=== PATIENT | male | born 1975 | race African-American/Black ===

== ENCOUNTER 2017-01-30 18:30 | Emergency (ER) | payer MEDICAID, OTHER ==
[~2017-01-30] VITALS: Ht 180.3 cm; Wt 70.0 kg
[~2017-01-30 18:30] MED LIST: KEPP500 PO
[2017-01-30] MEDS ORDERED: PHEN100C12 (19:05)
[2017-01-30 23:10] VITALS: BP 140/84
== END 2017-01-30 23:24 | disposition home or self-care (01) ==
LOC: ER 18:31
DX: B35.3 Tinea pedis (principal); F17.200 Nicotine dependence, unspecified, uncomplicated; F12.10 Cannabis abuse, uncomplicated; Z79.899 Other long term (current) drug therapy
CPT/HCPCS: 99282

== ENCOUNTER 2017-05-13 20:11 | Emergency (ER) | payer SELFPAY ==
[~2017-05-13] VITALS: Ht 180.3 cm; Wt 66.4 kg
[~2017-05-13 20:11] MED LIST changes: +PHEN100C12
[2017-05-13] MEDS ORDERED: KETOROLAC 30MG/ML VIAL IM NR (22:26)
[2017-05-13 23:17] VITALS: BP 132/63
[2017-05-13 23:19] LABS: BASOPHILS % 1.1 % (0.0-2.0); EOSINOPHILS % 4.9 % (0.0-5.0); HEMATOCRIT. 40.3 % (42.0-52.0); LYMPHOCYTES % 25.8 % (20.0-50.0); MEAN CORPUSCULAR HEMOGLOBIN 31.1 pg (28.0-32.0); MEAN CORPUSCULAR VOLUME 89.5 fL (80.0-94.0); MEAN PLATELET VOLUME 10.4 fl (7.4-10.4); MONOCYTES % 6.3 % (2.0-8.0); NEUTROPHILS % 61.9 % (40.0-76.0); PLATELET 176 x1000/uL (130-400); RED CELL DISTRIBUTION WIDTH 14.5 % (11.6-14.6)
[2017-05-13 23:31] LABS: PROTHROMBIN TIME 10.8 sec (9.4-11.6)
[2017-05-13 23:34] LABS: CARBON DIOXIDE 28 mEq/L (21-32); CHLORIDE 106 mEq/L (98-107); ETHANOL BLOOD < 10 mg/dL
[2017-05-13 23:57] LABS: CLARITY URINE CLEAR (CLEAR); COLOR URINE YELLOW (YELLOW); GLUCOSE URINE NEGATIVE (NEGATIVE); KETONES URINE NEGATIVE (NEGATIVE); LEUKOCYTE ESTERASE URINE NEGATIVE (NEGATIVE); NITRITE URINE NEGATIVE (NEGATIVE); OCCULT BLOOD URINE NEGATIVE (NEGATIVE); PROTEIN URINE NEGATIVE (NEGATIVE); SPECIFIC GRAVITY URINE 1.017 (1.005-1.030)
[2017-05-14 00:13] LABS: *AMPHETAMINES SCREEN URINE NEGATIVE (NEGATIVE); *BARBITURATES SCREEN URINE NEGATIVE (NEGATIVE); *BENZODIAZEPINES SCREEN URINE NEGATIVE (NEGATIVE); *COCAINE SCREEN URINE NEGATIVE (NEGATIVE); CANNABINOID URINE SCREEN PRESUMTIVE POSITIVE (NEGATIVE); METHADONE URINE SCREEN NEGATIVE (NEGATIVE); OPIATES URINE SCREEN NEGATIVE (NEGATIVE); PHENCYCLIDINE URINE SCREEN NEGATIVE (NEGATIVE)
== END 2017-05-14 01:14 | disposition home or self-care (01) ==
LOC: ER 22:25
DX: B35.3 Tinea pedis (principal); I88.9 Nonspecific lymphadenitis, unspecified; L03.115 Cellulitis of right lower limb; F17.200 Nicotine dependence, unspecified, uncomplicated; F12.10 Cannabis abuse, uncomplicated
CPT/HCPCS: 36415; 80053; 80305; 81001; 83605; 85025; 85610; 96372; 99284; G0482; J1885; Z7610

== ENCOUNTER 2017-07-12 21:03 | Emergency (ER) | payer MEDICAID ==
[~2017-07-12] VITALS: Ht 180.3 cm; Wt 71.0 kg
[2017-07-13] MEDS ORDERED: MORPHINE SULFATE 4 MG/ML CPJ (NOT FOR IM USE) IV STA (04:44)
[2017-07-13] MEDS ORDERED: SODIUM CHLORIDE 0.9% 1,000 ML IV ONE (04:44)
[2017-07-13 05:04] LABS: BASOPHILS % 0.9 % (0.0-2.0); EOSINOPHILS % 7.1 % (0.0-5.0); HEMATOCRIT. 41.1 % (42.0-52.0); LYMPHOCYTES % 35.3 % (20.0-50.0); MEAN CORPUSCULAR HEMOGLOBIN 31.1 pg (28.0-32.0); MEAN PLATELET VOLUME 10.2 fl (7.4-10.4); MONOCYTES % 10.4 % (2.0-8.0); NEUTROPHILS % 46.3 % (40.0-76.0); PLATELET 186 x1000/uL (130-400); RED BLOOD CELL COUNT 4.51 mill/uL (4.7-6.1); RED CELL DISTRIBUTION WIDTH 13.6 % (11.6-14.6)
[2017-07-13 05:20] LABS: CHLORIDE 108 mEq/L (98-107)
[2017-07-13 05:29] LABS: CARBON DIOXIDE 26 mEq/L (21-32)
[2017-07-13] MEDS ORDERED: VANCOMYCIN 1 G PREMIX 200 ML IV ONE (05:45)
[2017-07-13 08:16] VITALS: BP 114/74
== END 2017-07-13 08:17 | disposition home or self-care (01) ==
LOC: ER 07-13 02:36
DX: B35.3 Tinea pedis (principal); L03.115 Cellulitis of right lower limb; R03.0 Elevated blood-pressure reading, without diagnosis of hypertension; Z91.19 Patient's noncompliance with other medical treatment and regimen
CPT/HCPCS: 36415; 73630; 80053; 85025; 96361; 96365; 96366; 96375; 99285; J2270; J3370; J7030; Z7610

== ENCOUNTER 2020-12-29 23:22 | Emergency (ER) | payer MEDICAID, OTHER ==
[~2020-12-29] VITALS: Ht 177.8 cm; Wt 75.0 kg
[2020-12-30 00:29] LABS: BASOPHILS % 0.8 % (0.0-2.0); EOSINOPHILS % 9.3 % (0.0-5.0); HEMATOCRIT. 39.6 % (42.0-52.0); HEMOGLOBIN. 13.7 g/dL (14.0-18.0); LYMPHOCYTES % 24.8 % (20.0-50.0); MEAN CORPUSCULAR HEMOGLOBIN 30.6 pg (28.0-32.0); MEAN CORPUSCULAR VOLUME 88.3 fL (80.0-94.0); MEAN PLATELET VOLUME 10.1 fl (7.4-10.4); MONOCYTES % 9.9 % (2.0-8.0); NEUTROPHILS % 55.2 % (40.0-76.0); PLATELET 202 x1000/uL (130-400); RED BLOOD CELL COUNT 4.49 mill/uL (4.7-6.1); RED CELL DISTRIBUTION WIDTH 13.6 % (11.6-14.6)
[2020-12-30] MEDS ORDERED: CLINDAMYCIN 600 MG in DEXTROSE 5% WATER 50 ML IV ONE (00:45)
[2020-12-30] MEDS ORDERED: KETOROLAC 30MG/ML VIAL IV ONE (01:00)
[2020-12-30 01:11] VITALS: BP 130/88
[2020-12-30] MEDS ORDERED: CLINDAMYCIN 600MG PREMIX 50 ML IV NR (01:30)
[2020-12-30 01:53] LABS: CHLORIDE 110 mEq/L (98-107)
== END 2020-12-30 07:20 | disposition short-term general hospital (02) ==
LOC: ER 23:22
DX: L03.116 Cellulitis of left lower limb (principal)
CPT/HCPCS: 73620; 96365; 96375; 99284

== ENCOUNTER 2021-03-17 20:00 | Emergency (ER) | payer MEDICAID, OTHER ==
[~2021-03-17] VITALS: Ht 182.9 cm; Wt 70.0 kg
[2021-03-17] MEDS ORDERED: FENTANYL CITRATE/PF 50MCG/ML 2ML VIAL IV ONE ×2 (20:45→22:15)
[2021-03-17] MEDS ORDERED: LIDOCAINE HCL 1% 20ML VIAL (Pyxis) INJ INFIL ONE (22:15)
[2021-03-17] MEDS ORDERED: TRAM-529 MT (23:57)
[2021-03-18] MEDS ORDERED: KETOROLAC 30MG/ML VIAL IV ONE
[2021-03-18 00:29] VITALS: BP 130/97
[2021-03-18] MEDS ORDERED: TRAMADOL 50MG TABLET PO ONE (00:30)
== END 2021-03-18 00:50 | disposition home or self-care (01) ==
LOC: ER 22:43
DX: S82.842B Displaced bimalleolar fracture of left lower leg, initial encounter for open fracture type I or II (principal); V18.0XXA Pedal cycle driver injured in noncollision transport accident in nontraffic accident, initial encounter; Y93.55 Activity, bike riding; Y92.488 Other paved roadways as the place of occurrence of the external cause; F12.90 Cannabis use, unspecified, uncomplicated; Z87.828 Personal history of other (healed) physical injury and trauma; Z90.2 Acquired absence of lung [part of]; Z90.5 Acquired absence of kidney; Z98.890 Other specified postprocedural states
CPT/HCPCS: 29515; 73610; 96374; 96375; 96376; 99284; J1885; J3010; J3490

== ENCOUNTER 2022-12-07 19:28 | Emergency (ER) | payer OTHER ==
[~2022-12-07 19:28] MED LIST changes: +TRAM-529 MT
[2022-12-08] MEDS ORDERED: IBUP-2028 MT (05:08)
== END 2022-12-07 20:53 | disposition left against medical advice (07) ==
LOC: ER 19:28
DX: Z53.21 Procedure and treatment not carried out due to patient leaving prior to being seen by health care provider (principal)

== ENCOUNTER 2022-12-07 23:39 | Emergency (ER) | payer MEDICAID, OTHER ==
[~2022-12-07] VITALS: Ht 180.3 cm; Wt 66.0 kg
[2022-12-08 00:13] VITALS: BP 99/54
[2022-12-08] MEDS ORDERED: ACETAMINOPHEN 325MG TABLET PO ONE (03:45)
[2022-12-08] MEDS ORDERED: IBUP-2028 MT (05:08)
== END 2022-12-08 06:03 | disposition home or self-care (01) ==
LOC: ER 23:39
DX: M25.572 Pain in left ankle and joints of left foot (principal); Z87.828 Personal history of other (healed) physical injury and trauma
CPT/HCPCS: 29515; 73610; 99283; Z7610

== ENCOUNTER 2022-12-09 17:06 | Emergency (ER) | payer MEDICAID, OTHER ==
[~2022-12-09] VITALS: Ht 180.3 cm; Wt 66.0 kg
[~2022-12-09 17:06] MED LIST changes: +IBUP-2028 MT
[2022-12-09 17:16] VITALS: BP 124/80
[2022-12-10] MEDS ORDERED: LIDOCAINE HCL 1% 20ML VIAL (Pyxis) INJ INFIL ONE (00:30)
== END 2022-12-09 19:15 | disposition home or self-care (01) ==
LOC: ER 17:06
DX: S92.902A Unspecified fracture of left foot, initial encounter for closed fracture (principal); Z86.59 Personal history of other mental and behavioral disorders; X58.XXXA Exposure to other specified factors, initial encounter; Y93.89 Activity, other specified; Y92.89 Other specified places as the place of occurrence of the external cause; Y99.8 Other external cause status
CPT/HCPCS: 73630; 99283

== ENCOUNTER 2022-12-10 00:52 | Emergency (ER) | payer MEDICAID ==
[~2022-12-10] VITALS: Ht 180.3 cm; Wt 70.8 kg
[2022-12-10 06:10] VITALS: BP 121/69
== END 2022-12-10 06:26 | disposition home or self-care (01) ==
LOC: ER 01:13
DX: R45.851 Suicidal ideations (principal)
CPT/HCPCS: 99281

== ENCOUNTER 2023-01-02 23:23 | Emergency (ER) | payer MEDICAID ==
[~2023-01-02] VITALS: Ht 180.3 cm; Wt 66.5 kg
[2023-01-03] MEDS ORDERED: IBUP-2029 MT (03:38)
[2023-01-03] MEDS ORDERED: IBUPROFEN 600MG TABLET PO ONE (03:45)
[2023-01-03 04:00] VITALS: BP 115/74
== END 2023-01-03 04:01 | disposition home or self-care (01) ==
LOC: ER 23:23
DX: S93.402A Sprain of unspecified ligament of left ankle, initial encounter (principal); W50.2XXA Accidental twist by another person, initial encounter; Y93.89 Activity, other specified; Y92.89 Other specified places as the place of occurrence of the external cause; Y99.8 Other external cause status; F31.9 Bipolar disorder, unspecified; F20.9 Schizophrenia, unspecified; F12.10 Cannabis abuse, uncomplicated; Z79.899 Other long term (current) drug therapy
CPT/HCPCS: 73610; 99283